=== PATIENT | female | born 1995 | race African-American/Black ===

== ENCOUNTER 2021-12-11 21:40 | Emergency (ER) | payer SELFPAY ==
[2021-12-11 22:42] VITALS: BP 97/72; PULSE 79; RESP 16; TEMP 36.6; O2SAT 100
--- NOTE | 2021-12-12 02:55 | PC.NURSE ---
Pt called for room at this time, no answer.
--- NOTE | 2021-12-12 03:50 | PC.NURSE ---
2nd call for room, no answer
== END 2021-12-12 04:37 | disposition left against medical advice (07) ==
LOC: ANHED 12-12 03:57
DX: K64.4 Residual hemorrhoidal skin tags (principal)
CPT/HCPCS: 99199

== ENCOUNTER 2021-12-12 20:35 | Emergency (ER) | payer MEDICAID, SELFPAY ==
[2021-12-12 20:41] VITALS: BP 103/69; PULSE 93; RESP 16; TEMP 36.3; O2SAT 100
--- NOTE | 2021-12-12 23:12 | ED.GENADULT ---
HPI - General Adult General Chief complaint: Unspecified <CAROLINA Kamara Last Filed: 12/13/21 02:33> Stated complaint: Hemorrhoids <CAROLINA Kamara Last Filed: 12/13/21 02:33> Time Seen by Provider: 12/12/21 22:36 <CAROLINA Kamara Last Filed: 12/13/21 02:33> Source: patient <CAROLINA Kamara Last Filed: 12/13/21 02:33> Mode of arrival: ambulatory <CAROLINA Kamara Last Filed: 12/13/21 02:33> Limitations: no limitations <CAROLINA Kamara Last Filed: 12/13/21 02:33> History of Present Illness HPI narrative: Patient is a 26-year-old female who presents the ED with report of external hemorrhoid pain. Patient reports she has had a recurrent hemorrhoid for several years. Over the last week, she has had increasing pain with an external hemorrhoid. She has been taking ibuprofen at home. She has also tried taking a stool softener and using hemorrhoidal cream without much relief. She has noticed a bulge around her anus. She reports minimal blood with having a bowel movement when she wipes. She denies seeing blood mixed in with the stool or dripping into the toilet. Denies any fever, chills, abdominal pain, nausea, vomiting, urinary symptoms, back pain. <CAROLINA Kamara Last Filed: 12/13/21 02:33> Related Data Allergies/adverse reactions: Allergies Allergy/AdvReac Type Severity Reaction Status Date / Time No Known Allergies Allergy Verified 12/12/21 20:44 <Emily Ty PA-C - Last Filed: 12/13/21 02:33> Review of Systems Review of Systems: CONSTITUTIONAL: Denies fever, chills. CARDIOVASCULAR: Denies chest pain. RESPIRATORY: Denies dyspnea. GASTROINTESTINAL: Reports painful external hemorrhoid and blood with wiping. Denies abdominal pain, nausea, vomiting, melena, or diarrhea. GENITOURINARY: Denies dysuria or hematuria. MUSCULOSKELETAL: Denies back pain. <Emily Ty PA-C - Last Filed: 12/13/21 02:33> All systems reviewed & are unremarkable except as noted in HPI and below <Emily Ty PA-C - Last Filed: 12/13/21 02:33> PMFSH Past Medical History Medical History: Medical History (Updated 12/12/21 @ 23:57 by Emily Ty PA-C) Hemorrhoids <Emily Ty PA-C - Last Filed: 12/13/21 02:33> Surgical History Surgical History: Surgical History (Updated 12/12/21 @ 23:13 by Emily Ty PA-C) No pertinent past surgical history <Emily Ty PA-C - Last Filed: 12/13/21 02:33> Social History Social History: Social History (Updated 12/12/21 @ 23:14 by Emily Ty PA-C) Smoking status: Never smoker <Emily Ty PA-C - Last Filed: 12/13/21 02:33> Exam Narrative: GENERAL: Well appearing, well-nourished, non-toxic, in no acute distress. HEAD: Normocephalic, atraumatic. NECK: Supple. No adenopathy, no masses. RESPIRATORY: Airway patent, respirations nonlabored. Clear to auscultation bilaterally, no rales, rhonchi, wheezing. CARDIOVASCULAR: Regular rate and rhythm without murmurs, rubs, or gallops. Radial pulses 2+ and equal bilaterally. ABDOMINAL: Soft, nontender, nondistended, no hepatosplenomegaly. Normoactive BS. RECTAL: Nickel-sized skin-colored external hemorrhoid on external exam. Does not appear thrombosed. TTP with movement of external hemorrhoid. No TTP in perirectal region. No blood or fissures seen on exam. MUSCULOSKELETAL: Moves all extremities. Strength/ROM intact without gross deformities. SKIN: Warm, dry, normal color. No rashes. NEURO: A&O X3. Speech clear. Cranial nerves II-XII grossly intact. Steady gait. No ataxic movements. PSYCHIATRIC: Appropriate mood and affect. Normal interaction. <Emily Ty PA-C - Last Filed: 12/13/21 02:33> Course RADIOCOMMUNICATIONS TECHNICIAN/PA Physician Supervision For this patient encounter, I reviewed the RADIOCOMMUNICATIONS TECHNICIAN or PA documentation, treatment plan, and medical decision making <Gordo Godoy MD - Last Filed: 12/13/21 07:03> Vital Signs Vital signs
[2021-12-13] MEDS: KETOROLAC (*BKC) 60 MG/2 ML VIAL IM (00:21)
[2021-12-13 00:45] LABS: Basophils Absolute Auto 0.1 K/mm3 (0.0-0.1); Basophils Percent Auto 0.7 % (0.2-1.2); Eosinophils Absolute Auto 0.4 K/mm3 (0-0.3); Hematocrit 37.1 % (37.0-47.0); Hemoglobin 11.7 g/dL (12.0-15.0); Immature Granulocyte Absolute 0.02 K/mm3 (0.00-0.031); Immature Granulocyte Percent A 0.3 % (0-0.5); Lymphocytes Absolute Auto 3.24 K/mm3 (0.9-3.2); Lymphocytes Percent Auto 46.3 % (18.3-44.2); Mean Corpuscular HGB Conc 31.5 g/dl (32-36); Mean Corpuscular Hemoglobin 27.6 pg (26-34); Mean Corpuscular Volume 87.5 fl (80-100); Mean Platelet Volume 9.4 fl (7.4-10.4); Monocytes Absolute Auto 0.5 K/mm3 (0.1-0.6); Monocytes Percent Auto 7.3 % (2.6-8.5); Neutrophils Absolute Auto 2.8 K/mm3 (1.3-6.7); Neutrophils Percent Auto 40.4 % (45.5-73.1); Platelet Count Result 186 k/mm3 (150-375); Red Blood Count 4.24 M/mm3 (4.2-5.4); Red Cell Distribution Width 13.9 % (11.5-14.5)
[2021-12-13 00:56] LABS: Alanine Aminotransferase 13 U/L (6-35); Albumin Level 4.1 g/dL (3.5-5.1); Alkaline Phosphatase 23 U/L (38-126); Anion Gap 4 mmol/L (8-16); Aspartate Amino Transferase 24 U/L (14-36); Bilirubin,Total 0.2 mg/dL (0.2-1.3); Blood Urea Nitrogen 15 mg/dL (7-17); Calcium 9.2 mg/dL (8.4-10.2); Carbon Dioxide 28 mmol/L (22-30); Chloride 104 mmol/L (98-107); Estimated CRCL calculation 83 ml/min; Estimated Glomerular Filt Rate > 60; Glucose 92 mg/dL (65-110); Potassium 4.1 mmol/L (3.4-5.0); Sodium 136 mmol/L (137-145)
[2021-12-13 02:44] VITALS: BP 128/74; PULSE 86; RESP 16; O2SAT 98
== END 2021-12-13 01:20 | disposition home or self-care (01) ==
PROVIDERS: Physician Assistant; Emergency Provider Emergency Medicine
DX: K64.4 Residual hemorrhoidal skin tags (principal)
CPT/HCPCS: 36415; 80053; 85025; 96372; 99283; J1885